=== PATIENT | female | born 1995 | race African-American/Black ===

== ENCOUNTER 2018-09-13 09:54 | Emergency (ER) ==
[2018-09-13 10:09] VITALS: BP 153/104; TEMP 98.3; BMI 46.9
--- NOTE | 2018-09-13 10:36 | ED.PDOC ---
General ED Provider: Dr. JENIFFER RITCHIE Chief Complaint: Dizziness Stated Complaint: Dizziness and head fullness. Onset this past Friday. Had extrememly long day at work on Friday, ending her day by transporting a child to [place]. Did not get home until 3AM. She had and onset of "weird noise " (like fan bladed moving)in my head and experienced some dizziness with unsteady gait. Awakened early Friday morning and it seemed that lt sided heared seemed diminished and noted the tinnitus type of noise and then noticed she could not hear out of rt ear. Still had problems with gait. Has had an unusual time in concentrating as well. Went to her urgent care on Friday and given Rx Meclizine and antibiotic. Instructed by provider if not better after few days to go to ER for evaluation and that she would likely require a CT scan. Denies nausea or vomiting, visual changes or loc. Her speech is clear and has good movement of extremeties. Denies other deficits. Time Seen by Physician: 10:10 Mode of Arrival: Walk-In Information Source: Patient Exam Limitations: No limitations Primary Care Provider: CHANTELLE BHATTI Referred to ED by: Clinic Nursing and Triage Documentation Reviewed and Agree: Yes Does patient meet sepsis criteria?: No System Inflammatory Response Syndrome: Not Applicable Sepsis Protocol: For patient's 13 years and over: Temp is 96.8 and below OR 101 and greater Pulse >90 BPM Resp >20/minute Acutely Altered Mental Status Are patient's symptoms suggestive of a new infection, such as: -Pneumonia -Skin, Soft Tissue -Endocarditis -UTI -Bone, Joint Infection -Implantable Device -Acute Abdominal Infection -Wound Infection -Meningitis -Blood Stream Catheter Infection -Unknown Neurological Complaint Exam - Headache Complaint/Exam Onset: Gradual Symptoms Are: Still present (lesseded-back of neck) Timing: Intermittent Worst Headache Ever: No Initial Severity: Mild Current Severity: Mild Location: Occipital Character: Reports: Dull, Pressure Aggravating: Reports: None Alleviating: Reports: Rest Associated Signs and Symptoms: Reports: Dizziness Related History: Denies: Similar episode Related Surgical History: Reports: None SAH Risk Factors: Reports: None Meningitis Risk Factors: Reports: None SDH Risk Factors: Reports: None Temporal Arteritis Risk Factors: Reports: None Fundoscopic Exam: Present: Normal Findings Papilledema Present: No Temporal Artery Tenderness: Present: None Sinus Tenderness: Present: None TMJ Tenderness: Present: None Meningeal Signs Positive: No Pain on Passive Flexion-Positive Kernig's: No ROM Limited In: No Limitiations Focal Weakness: Present: None Focal Sensory Loss: Present: None Gait: Normal Nystagmus Present: No Gag Reflex Present: No Differential Diagnoses: Viral Syndrome (Senineural hearing loss) - Dizziness Complaint/Exam Onset: Gradual Duration: 4 days Symptoms Are: Still present Timing: Constant Episodes Lasting: Minutes Initial Severity: Moderate Current Severity: Moderate Character: Reports: Lightheaded Aggravating: Reports: Position change, Change in head position Alleviating: Reports: Rest, Lying down, Closing eyes, Turning head Associated Signs and Symptoms: Reports: Nausea Related History: Similar episode Cardiac Risk Factors: Reports: None CVA Risk Factors: Reports: None Related Surgical History: Reports: None JVD Present: No Nystagmus Present: No Gag Reflex Present: No Meningeal Signs Positive: No Romberg Test Positive: No Babinski Sign: Negative Right, Negative Left Heel to Toe Normal: Yes Glenvil-Hallpike Test Positive: No Differential Diagnoses: Labyrinthitis, Meniere's Review of Systems - Review Of Systems Constitutional: Reports: No symptoms Eyes: Reports: No symptoms, Vision change, Other (sensation that movement does not keep up with her vision ) Ears, Nose, Mouth, Throat: Reports: No symptoms (RT sided hearing deficit) Respiratory: Reports: No symptoms Cardiac: Reports: No symptoms GI: Reports: No symptoms : Reports: No symptoms Musculoskeletal: Reports: No symptoms Skin: Reports: No symptoms Neurological: Reports: No symptoms Endocrine: Reports: No symptoms Hematologic/Lymphatic: Reports: No symptoms All Other Systems: Reviewed and Negative Past Medical History - Past Medical History Previously Healthy: Yes Endocrine: Reports: None Cardiovascular: Reports: None Respiratory: Reports: None Hematological: Reports: None Gastrointestinal: Reports: None Genitourinary: Reports: None Neuro/Psych: Reports: None Musculoskeletal: Reports: None Cancer: Reports: None Last Menstrual Period: june - Surgical History General Surgical History: Reports: None - Family History Family History: Reports: None - Social History Smoking Status: Never smoker Hx Substance Use: No Alcohol Screening: Occasionally Physical Exam - Physical Exam Appearance: Well-appearing, No pain distress, Well-nourished, Obese Ill-appearing: Mild Pain Distress: Mild Eyes: JAIRON, EOMI, Conjunctiva clear ENT: Ears normal, Nose normal, Oropharynx normal Neck: Supple Respiratory: Airway patent, Breath sounds clear, Breath sounds equal, Respirations nonlabored Cardiovascular: RRR, Pulses normal, No rub, No murmur GI/: Soft, Nontender, No masses, Bowel sounds normal, No Organomegaly Musculoskeletal: Normal strength, ROM intact, No edema, No calf tenderness Skin: Warm, Dry, Normal color Neurological: Sensation intact, Motor intact, Reflexes intact, Cranial nerves intact, Alert, Oriented, Focal Deficit (hearing loss -lt side) Psychiatric: Affect appropriate, Mood appropriate Interpretation - Radiology Interpretation Radiology Interpretation By: Radiologist Radiology Results: Negative Exam Interpreted: CT Scan (head and sinuses) Critical Care Note - Critical Care Note Total Time (mins): 60 Course - Course Hematology/Chemistry: 09/13/18 10:45 09/13/18 10:45 Orders, Labs, Meds: Lab Review 09/13/18 09/13/18 09/13/18 10:45 10:45 10:45 WBC 9.13 RBC 4.52 Hgb 12.4 Hct 37.7 MCV 83.4 MCH 27.4 MCHC 32.9 RDW Coeff of Liz 13.4 Plt Count 255 Immature Gran % (Auto) 0.3 Neut % (Auto) 56.6 Lymph % (Auto) 28.7 [place] % (Auto) 10.1 H Eos % (Auto) 3.8 Baso % (Auto) 0.5 Immature Gran # (Auto) 0.0 Neut # (Auto) 5.2 Lymph # (Auto) 2.6 [place] # (Auto) 0.9 Eos # (Auto) 0.4 Baso # (Auto) 0.1 ESR 14 Sodium 138.3 Potassium 4.26 Chloride 104.3 Carbon Dioxide 28.7 Anion Gap 9.56 BUN 9.1 Creatinine 0.81 Estimated GFR (MDRD) 107.00 BUN/Creatinine Ratio 11.23 Glucose 108.8 H Calcium 9.36 Magnesium 1.67 Total Bilirubin 0.34 AST 31.7 ALT 25.2 Alkaline Phosphatase 61.6 Total Protein 7.17 Albumin 4.23 Globulin 2.94 Albumin/Globulin Ratio 1.43 Urine Color Urine Clarity Urine pH Ur Specific [place] Urine Protein Urine Glucose (UA) Urine Ketones Urine Blood Urine Nitrite Urine Bilirubin Urine Urobilinogen Ur Leukocyte Esterase Urine Opiates Screen Ur Oxycodone Screen Urine Methadone Screen Ur Propoxyphene Screen Ur Barbiturates Screen U Tricyclic Antidepress Ur Phencyclidine Scrn Ur Amphetamine Screen U Methamphetamines Scrn U Benzodiazepines Scrn Urine Cocaine Screen U Cannabinoids Screen Influ A Molecular Assay Influ B Molecular Assay 09/13/18 09/13/18 09/13/18 10:45 10:55 10:55 WBC RBC Hgb Hct MCV MCH MCHC RDW Coeff of Liz Plt Count Immature Gran % (Auto) Neut % (Auto) Lymph % (Auto) [place] % (Auto) Eos % (Auto) Baso % (Auto) Immature Gran # (Auto) Neut # (Auto) Lymph # (Auto) [place] # (Auto) Eos # (Auto) Baso # (Auto) ESR Sodium Potassium Chloride Carbon Dioxide Anion Gap BUN Creatinine Estimated GFR (MDRD) BUN/Creatinine Ratio Glucose Calcium Magnesium Total Bilirubin AST ALT Alkaline Phosphatase Total Protein Albumin Globulin Albumin/Globulin Ratio Urine Color Yellow Urine Clarity Clear Urine pH 6.0 Ur Specific [place] 1.025 Urine Protein Negative Urine Glucose (UA) Negative Urine Ketones Negative Urine Blood Negative Urine Nitrite Negative Urine Bilirubin Negative Urine Urobilinogen 0.2 Ur Leukocyte Esterase Negative Urine Opiates Screen Negative Ur Oxycodone Screen Negative Urine Methadone Screen Negative Ur Propoxyphene Screen Negative Ur Barbiturates Screen Negative U Tricyclic Antidepress Negative Ur Phencyclidine Scrn Negative Ur Amphetamine Screen Negative U Methamphetamines Scrn Negative U Benzodiazepines Scrn Negative Urine Cocaine Screen Negative U Cannabinoids Screen Negative Influ A Molecular Assay Negative by naat Influ B Molecular Assay Negative by naat Orders Category Date Time Status CBC W/ AUTO DIFF Stat LAB 09/13/18 10:45 Completed CMP [COMPREHENSIVE METABOLIC PANEL] Stat LAB 09/13/18 10:45 Completed ESR Stat LAB 09/13/18 10:45 Completed FLU A & B MOLECULAR [FLU A/B MOLECULAR] Stat LAB 09/13/18 10:45 Completed MAGNESIUM Stat LAB 09/13/18 10:45 Completed RAPID STREP SCREEN [MOLECULAR GROUP A STREP] Stat LAB 09/13/18 10:45 Completed UA [URINALYSIS C & S IF INDICATED] Stat LAB 09/13/18 10:55 Completed URINE DRUG SCREEN (RAPID FOR ED) [DRUG SCREEN, URINE, LAB 09/13/18 10:55 Completed RAPID] Stat CT HEAD W/O CONTRAST Stat RADS 09/13/18 10:[address] SINUSES W/O CONTRAST Stat RADS 09/13/18 10:39 Completed Vital Signs: Temp Pulse Resp BP Pulse Ox 09/13/18 09:55 98.3 F 96 H 20 153/104 H 97 Departure - Departure Time of Disposition: 12:00 Disposition: HOME SELF-CARE Discharge Problem: 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, Tinnitus of right ear, Dizziness, Hypertension Instructions: Hearing Loss (ED), Dizziness (ED), Tinnitus (ED), Heart Healthy Diet (ED), Hypertension (ED) Condition: Good Pt referred to PMD for follow-up: Yes (with in next 3-4 days to arrange for outpt MRI Brain) IPMP verified?: No Additional Instructions: Discussed possible mechanisms of current hearing problem Take meds as prescribed Follow up as directed Prescriptions: Prednisone 10 mg PO DIRECTED #20 tablet Valacyclovir HCl [Valacyclovir] 1,000 mg PO TID #21 tablet Allergies/Adverse Reactions: Allergies corn Adverse Reaction (Verified 09/13/18 10:04) grass pollen Adverse Reaction (Verified 09/13/18 10:04) nut - unspecified Adverse Reaction (Verified 09/13/18 10:04) shellfish derived Adverse Reaction (Verified 09/13/18 10:04) tree and shrub pollen Adverse Reaction (Verified 09/13/18 10:04) wheat Adverse Reaction (Verified 09/13/18 10:04) Home Medications: Ambulatory Orders Amoxicillin 875 mg PO BID 09/13/18 Fluticasone Propionate [Flonase] 1 spray NS DIRECTED PRN 09/13/18 Meclizine HCl [Antivert] 25 mg PO TID 09/13/18 Prednisone 10 mg PO DIRECTED #20 tablet 09/13/18 Valacyclovir HCl [Valacyclovir] 1,000 mg PO TID #21 tablet 09/13/18 Disposition Discussed With: Patient, Family
--- NOTE | 2018-09-13 11:08 | CT ---
EXAM: CT scan head without contrast. HISTORY: Headache, dizziness COMPARISON: None. TECHNIQUE: Axial scans acquired 5 mm slice thicknesses. Sagittal and coronal sequences completed FINDINGS: There is no subdural hematoma or intracranial hemorrhage seen. There is no shift of midli ne structures. Yeung-white matter differentiation is maintained. Ventricles are normal in size. The paranasal sinuses and mastoid air cells appear clear. IMPRESSION: Negative CT scan head. No intracranial hemorrhage, CVA, mass or hydrocephalus is seen.
--- NOTE | 2018-09-13 11:10 | CT ---
EXAM: CT sinuses without contrast HISTORY: Headache, dizziness COMPARISON: None heading TECHNIQUE: CT sinuses performed without intravenous contrast. Coronal and sagittal reformatted imag es obtained. FINDINGS: Mastoid air cells clear. Temporal mandibular joints normally aligned. No fracture identi fied. Maxillary sinuses clear. Minimal mucosal thickening in the sphenoid sinuses. Minimal mucosal thickening in the ethmoid air cells. Frontal sinuses clear. No air-fluid levels paranasal sinuses. Ostiomeatal units patent. Mild rightward deviation nasal septum. Globes and retrobulbar structure s unremarkable. IMPRESSION: Minimal sinusitis
== END 2018-09-13 12:30 | disposition home or self-care (01) ==
LOC: ED 09:54
DX: R42 Dizziness and giddiness (principal); I10 Essential (primary) hypertension; H93.19 Tinnitus, unspecified ear; H91.8X1 Other specified hearing loss, right ear
CPT/HCPCS: 36415; 80053; 80306; 81001; 83735; 85025; 85651; 87502; 87651; 99283

== ENCOUNTER 2019-07-24 19:40 | Emergency (ER) ==
[2019-07-24 19:50] VITALS: BP 120/72; TEMP 97.8; BMI 36.9
--- NOTE | 2019-07-24 19:53 | ED.PDOC ---
General ED Provider: Dr. ERWIN PATTERSON Chief Complaint: Behavioral Complaint Stated Complaint: Brought in by PD; pt ideation of suicide by jumping [place]. Time Seen by Physician: 19:40 Mode of Arrival: Police Information Source: Patient, Police Exam Limitations: No limitations Nursing and Triage Documentation Reviewed and Agree: Yes Does patient meet sepsis criteria?: No System Inflammatory Response Syndrome: Not Applicable Sepsis Protocol: For patient's 13 years and over: Temp is 96.8 and below OR 101 and greater Pulse >90 BPM Resp >20/minute Acutely Altered Mental Status Are patient's symptoms suggestive of a new infection, such as: -Pneumonia -Skin, Soft Tissue -Endocarditis -UTI -Bone, Joint Infection -Implantable Device -Acute Abdominal Infection -Wound Infection -Meningitis -Blood Stream Catheter Infection -Unknown Review of Systems - Review Of Systems Constitutional: Reports: No symptoms Respiratory: Reports: No symptoms Cardiac: Reports: No symptoms Neurological: Reports: No symptoms All Other Systems: Reviewed and Negative Past Medical History - Past Medical History Previously Healthy: Yes Endocrine: Reports: None Cardiovascular: Reports: None Respiratory: Reports: None Hematological: Reports: None Gastrointestinal: Reports: None Genitourinary: Reports: None Neuro/Psych: Reports: None Musculoskeletal: Reports: None Cancer: Reports: None Last Menstrual Period: 2 weeks - Surgical History General Surgical History: Reports: None - Family History Family History: Reports: None - Social History Smoking Status: Never smoker Hx Substance Use: No Alcohol Screening: None - Immunizations Tetanus Shot up to Date: Yes Physical Exam - Physical Exam Appearance: Well-appearing Ill-appearing: None Pain Distress: None Eyes: JAIRON ENT: Oropharynx normal Neck: Supple Respiratory: Airway patent, Breath sounds clear, Breath sounds equal, Respirations nonlabored Cardiovascular: RRR Musculoskeletal: Normal strength, ROM intact, No edema Skin: Warm, Dry, Normal color Neurological: Sensation intact, Motor intact, Alert, Oriented Psychiatric: Affect appropriate, Mood appropriate Re-Evaluation - Re-Evaluation Time of Re-Evaluation: 21:40 Status: Unchanged (Calm, good historian, has recently had an upper respiratory infection and has been on steroids - just finished treatment.) Vital Signs Stable: Yes Appearance: NAD Lungs: Clear Skin: Warm and Dry Neuro: Alert and Oriented X3 Additional Comments: Patient is medically cleared for appropriate psychiatric hospitalization Critical Care Note - Critical Care Note Total Time (mins): 35 Comments: Review of labs, EKG, drug screen, discussion with counsellor re plan for [facility]) and review of clinical circumstances Course - Course Hematology/Chemistry: 07/24/19 20:07 07/24/19 20:07 Orders, Labs, Meds: Lab Review 07/24/19 07/24/19 07/24/19 20:00 20:07 20:07 WBC 12.36 H RBC 4.58 Hgb 12.6 Hct 38.5 MCV 84.1 MCH 27.5 MCHC 32.7 RDW Coeff of Liz 13.5 Plt Count 295 Immature Gran % (Auto) 0.6 Neut % (Auto) 53.6 Lymph % (Auto) 34.4 [place] % (Auto) 7.9 Eos % (Auto) 3.2 Baso % (Auto) 0.3 Immature Gran # (Auto) 0.1 Neut # (Auto) 6.6 Lymph # (Auto) 4.3 H [place] # (Auto) 1.0 Eos # (Auto) 0.4 Baso # (Auto) 0.0 Sodium 138.4 Potassium 3.70 Chloride 106.5 Carbon Dioxide 22.1 Anion Gap 13.50 BUN 9.6 Creatinine 0.70 Estimated GFR (MDRD) 126.00 BUN/Creatinine Ratio 13.71 Glucose 95.6 Calcium 9.37 Total Bilirubin 0.40 AST 18.3 ALT 18.8 Alkaline Phosphatase 65.8 Total Protein 7.81 Albumin 4.54 Globulin 3.27 Albumin/Globulin Ratio 1.38 TSH 2.950 Serum , Qual Negative Urine Color Urine Clarity Urine pH Ur Specific [place] Urine Protein Urine Glucose (UA) Urine Ketones Urine Blood Urine Nitrite Urine Bilirubin Urine Urobilinogen Ur Leukocyte Esterase Urine Microscopic RBC Urine Microscopic WBC Ur Squamous Epith Cells Urine Bacteria Urine Mucus Salicylate Level mg/dL < 1.00 Urine Opiates Screen Ur Oxycodone Screen Urine Methadone Screen Ur Propoxyphene Screen Acetaminophen < 10.0 L Ur Barbiturates Screen U Tricyclic Antidepress Ur Phencyclidine Scrn Ur Amphetamine Screen U Methamphetamines Scrn U Benzodiazepines Scrn Urine Cocaine Screen U Cannabinoids Screen Plasma/Serum Alcohol < 10.0 07/24/19 07/24/19 21:00 21:00 WBC RBC Hgb Hct MCV MCH MCHC RDW Coeff of Liz Plt Count Immature Gran % (Auto) Neut % (Auto) Lymph % (Auto) [place] % (Auto) Eos % (Auto) Baso % (Auto) Immature Gran # (Auto) Neut # (Auto) Lymph # (Auto) [place] # (Auto) Eos # (Auto) Baso # (Auto) Sodium Potassium Chloride Carbon Dioxide Anion Gap BUN Creatinine Estimated GFR (MDRD) BUN/Creatinine Ratio Glucose Calcium Total Bilirubin AST ALT Alkaline Phosphatase Total Protein Albumin Globulin Albumin/Globulin Ratio TSH Serum , Qual Urine Color Yellow Urine Clarity Slightly Urine pH 7.0 Ur Specific [place] 1.025 Urine Protein 1+ Urine Glucose (UA) Negative Urine Ketones Negative Urine Blood Negative Urine Nitrite Negative Urine Bilirubin Negative Urine Urobilinogen 0.2 Ur Leukocyte Esterase Negative Urine Microscopic RBC 2-5 Urine Microscopic WBC 0-2 Ur Squamous Epith Cells 10-20 Urine Bacteria Trace Urine Mucus 1+ Salicylate Level mg/dL Urine Opiates Screen Negative Ur Oxycodone Screen Negative Urine Methadone Screen Negative Ur Propoxyphene Screen Negative Acetaminophen Ur Barbiturates Screen Negative U Tricyclic Antidepress Negative Ur Phencyclidine Scrn Negative Ur Amphetamine Screen Negative U Methamphetamines Scrn Negative U Benzodiazepines Scrn Negative Urine Cocaine Screen Negative U Cannabinoids Screen Negative Plasma/Serum Alcohol Orders Category Date Time Status EKG-(ED ONLY) Stat CARDIO 07/24/19 19:59 Completed ED DATABASE DESIGNER APPLIED ONCE EMERGENCY 07/24/19 19:59 Active ACETAMINOPHEN Stat LAB 07/24/19 20:07 Completed BLOOD ALCOHOL Stat LAB 07/24/19 20:07 Completed CBC W/ AUTO DIFF Stat LAB 07/24/19 20:07 Completed COMPREHENSIVE METABOLIC PANEL Stat LAB 07/24/19 20:07 Completed DRUG SCREEN, URINE, RAPID Stat LAB 07/24/19 21:00 Completed SALICYLATE Stat LAB 07/24/19 20:07 Completed SERUM Stat LAB 07/24/19 20:00 Completed THYROID STIMULATING HORMONE Stat LAB 07/24/19 20:07 Completed URINALYSIS C & S IF INDICATED Stat LAB 07/24/19 19:59 Uncollected URINALYSIS C & S IF INDICATED Stat LAB 07/24/19 21:00 Completed Acetaminophen [Tylenol] MEDS 07/24/19 21:30 Discontinued 1,000 mg PO ONCE STA Medications Discontinued Medications Generic Name Dose Route Start Last Admin Trade Name Freq PRN Reason Stop Dose Admin Acetaminophen 1,000 mg 07/24/19 21:30 07/24/19 21:34 Tylenol PO 07/24/19 21:31 1,000 mg ONCE STA Administration Vital Signs: Temp Pulse Resp BP Pulse Ox 07/24/19 19:41 97.8 F 97 H 14 120/72 98 Departure - Departure Time of Disposition: 23:47 Disposition: TSF SHORT-TRM HOSP Discharge Problem: Suicide ideation Condition: Good Pt referred to PMD for follow-up: Yes (follow up after psych evaluation) IPMP verified?: No (N/A) Allergies/Adverse Reactions: Allergies corn Adverse Reaction (Verified 07/24/19 19:52) grass pollen Adverse Reaction (Verified 07/24/19 19:52) nut - unspecified Adverse Reaction (Verified 07/24/19 19:52) shellfish derived Adverse Reaction (Verified 07/24/19 19:52) tree and shrub pollen Adverse Reaction (Verified 07/24/19 19:52) wheat Adverse Reaction (Verified 07/24/19 19:52) Home Medications: Ambulatory Orders Fluticasone Propionate [Flonase] 1 spray NS DIRECTED PRN 09/13/18 Buspirone HCl [Buspar] 10 mg PO PRN PRN 07/24/19 Metformin HCl [Glucophage] 1,000 mg PO DAILY 07/24/19 Sertraline HCl [Zoloft] 25 mg PO DAILY 07/24/19
[2019-07-24] MEDS ORDERED: TYLENOL PO STA (21:30)
[2019-07-24] MEDS ORDERED: ROCEPHIN 1 GM PREMIX 1 GM in PREMIX 50 ML D5W 1 BAG IV STA (23:37)
== END 2019-07-25 00:20 | disposition short-term general hospital (02) ==
LOC: ED 19:40
DX: R45.851 Suicidal ideations (principal)
CPT/HCPCS: 36415; 80053; 80306; 80307; 81001; 84443; 84703; 85025; 93005; 93010; 99285